=== PATIENT | male | born 1990 | race Caucasian/White ===

== ENCOUNTER 2017-11-04 15:41 | Emergency (ER) | payer MEDICAID, OTHER ==
[~2017-11-04] VITALS: Ht 167.6 cm; Wt 63.0 kg
[2017-11-04 16:03] LABS: BASOPHILS # (AUTO) 0.03 x10^3/uL (0-0.1); BASOPHILS % (AUTO) 0 % (0-1); EOSINOPHILS # (AUTO) 0.09 x10^3/uL (0-0.4); EOSINOPHILS % (AUTO) 1 % (1-7); LYMPHOCYTES # (AUTO) 2.46 x10^3/uL (1-3.4); LYMPHOCYTES % (AUTO) 24 % (22-44); MD NO; MEAN CORPUSCULAR HEMOGLOBIN 29.6 pg (27.5-34.5); MEAN CORPUSCULAR HGB CONC 34.4 g/dL (33.2-36.2); MEAN CORPUSCULAR VOLUME 85.8 fL (81-97); MEAN PLATELET VOLUME 8.7 fL (7.4-10.4); MONOCYTES # (AUTO) 0.58 x10^3/uL (0.2-0.8); MONOCYTES % (AUTO) 6 % (2-9); NEUTROPHILS # (AUTO) 6.91 x10^3/uL (1.8-6.8); NEUTROPHILS % (AUTO) 69 % (42-75); PLATELET COUNT 249 x10^3/uL (130-400); RED BLOOD COUNT 5.85 x10^6/uL (4.38-5.82)
[2017-11-04 16:16] LABS: ALANINE AMINOTRANSFERASE 22 U/L (12-78); ALBUMIN 5.2 g/dL (3.4-5.0); ANION GAP 9 mmol/L (5-15); CALCIUM 9.7 mg/dL (8.5-10.1); CHLORIDE 107 mmol/L (98-107); CREATININE 0.96 mg/dL (0.7-1.3)
[2017-11-04 16:18] LABS: ALKALINE PHOSPHATASE 82 U/L (45-117); BILIRUBIN,TOTAL 0.8 mg/dL (0.2-1.0); SALICYLATE LEVEL < 1.7 mg/dL (2.8-20.0); TOTAL PROTEIN 8.6 g/dL (6.4-8.2)
[2017-11-04 16:19] LABS: ACETAMINOPHEN < 2 mcg/mL (10-30)
[2017-11-04 17:00] LABS: AMPHETAMINE SCREEN, URINE Negative (Negative); BARBITURATE SCREEN, URINE Negative (Negative); BENZODIAZEPINE SCREEN, URINE Negative (Negative); CANNABINOID SCREEN, URINE Positive (Negative); COCAINE SCREEN, URINE Negative (Negative); METHADONE SCREEN, URINE Negative (Negative); OPIATE SCREEN, URINE Negative (Negative)
[2017-11-04] MEDS ORDERED: PLEASE ENTER ALLERGIES MC SCH (17:29)
[2017-11-04] MEDS ORDERED: OLANZAPINE 10 MG TABLET PO SCH (17:30)
[2017-11-04 20:17] VITALS: BP 128/78
== END 2017-11-04 20:19 ==
LOC: ED 16:32 → EDIP 17:20 → UNDOADMOB 17:20 → ED 20:13
DX: F20.9 Schizophrenia, unspecified (principal); Z79.899 Other long term (current) drug therapy
CPT/HCPCS: 36415; 80053; 80307; 80329; 85025; 93005; 99285; G0480